=== PATIENT | male | born 1960 | race Caucasian/White ===

== ENCOUNTER 2025-03-11 02:16 | Day surgery (SDC) | payer MEDICARE, SELFPAY ==
[2025-02-26 08:12] VITALS: BMI 28.0
--- NOTE | 2025-02-26 08:34 | PC.NURSE ---
[facility] has started construction of its new state of the art ER which will open Spring 2026. With this, we anticipate parking may be a challenge for some our surgical patients and families. Parking spaces are limited but are available for all Surgical, obstetrics, and ER patients sharing this lot. If you arrive and find you are having a hard time finding a parking space, please note that we understand the challenges, please drive around the hospital and park near Hospital Entrance 1. When you enter this entrance, you can ask a volunteer to direct or take you back to the surgical waiting area to check in. We appreciate everyone?s understanding of these expected challenges while we build for your future. Report to the Outpatient Waiting Room, entrance under the green pavilion located off [address], at time ___10:00AM____ on date ____03/11/25___. Planned Procedure Time: __12:00PM .? Time changes happen often and if your time is changed the preop area will call you the afternoon before. - You and your visitor will be asked to self-screen and do not enter if you have any COVID symptoms. Please call surgeon if you need to reschedule. - A mask is optional within the hospital at this time. Patients may have clear liquids (water, carbonated beverages, clear teas, apple juice) until 3 hours prior to surgery (9:00AM) with a maximum of 20 ounces. - No food from midnight until time of surgery and no smoking, or chewing tobacco (or any form of nicotine). No chewing gum, candy or mints. Take only the following medications with a SIP of water on the morning of surgery: NONE DO NOT STOP ANY OF YOUR OTHER PRESCRIPTION MEDICATIONS PRIOR TO SURGERY EXCEPT THE FOLLOWING Hold all vitamins and supplements for 3 days per anesthesiologist. Medications to discontinue per physician NONE Date to take last dose Please no make-up, nail cay[place] islander, hairspray, perfume, deodorant, or body powder the day of surgery.? No jewelry (including any body piercings) or valuables the day of surgery, leave them at home.? Please take a shower or bath the night before, or the morning of, surgery with an antibacterial soap.? Wear comfortable, loose fitting clothing.? Children are encouraged to wear pajamas. - Jewelry must be removed prior to entering the operating room.? Rings and piercings that are not removed may be cut off. - The hospital will not accept responsibility for valuables.? - Please leave all valuables, including medications, at home the day of surgery. If you are going home after surgery, a licensed route relief driver must drive you home.? - NO public transportation without another adult if you receive anesthesia. - We recommend that an adult stay with you for 24 hours following discharge. - We also recommend that you do not drive, make important decision, drink alcoholic beverages, or take any drugs that were not prescribed by your health care provider for at least 24 hours after your discharge time. For Pediatric surgeries, we recommend two adults accompany the child home. Follow any additional instructions given to you from your surgeon. Telephone instructions given to ____PATIENT and asked if any additional questions and then verbalized understanding. Patient advised to call surgeon office or pre surgery nurse liaison [phone] if any additional questions.
--- NOTE | 2025-03-09 16:39 | P.SS_ITS ---
Same Day Admit/Disch: HPI History of Present Illness Chief complaint: left inguinal hernia Narrative: Milagro Schmidt is a 64 year old male who has a left groin bulge which he first noticed in late July 2024. Has mild associated tenderness, but no specific pain. Most symptomatic at the end of the day, after he's been active. No change in bowel habits, nausea, vomiting, urinary difficult or abdominal distension. No previous hernias or abdominal surgeries. [facility] Past Medical History Medical History (Updated 03/11/25 @ 14:55 by Mike Quintanilla MD) Overweight Surgical History Surgical History Elbow injury elbow traction spur 1986 Family History Family History Mother Cancer Social History Social History Smoking packs per day: 1 Smoking cigarettes per day: 20.0 Years smoked: 4 Smoking pack-years: 4.00 Smoking status: Never smoker Tobacco type: cigarettes Smoking end date: 09/22/82 Living arrangements: with family Additional living arrangements comments: Spiritual care concerns: No Same Day Admit/Disch: Med Pre-admit Medications Home Medications ?Medication ?Instructions ?Recorded ?Confirmed ?Type ibuprofen 600 mg tablet 600 mg PO Q6H PRN pain #14 t abs 03/11/25 Rx oxycodone-acetaminophen 5 mg-325 0.5 - 1 tablet PO Q4H PRN pain #14 03/11/25 Rx mg tablet (Percocet) tabs Exam Const: General: comfortable, no acute distress, alert and awake HENMT: Head: normocephalic and atraumatic Mouth: Yes Normal oral and palatal mucosa present Eyes: Conjunctivae: conjunctivae normal Pupils: Equal, round and reactive p upils present EOM: EOMs intact bilaterally Neck: Neck: normal visual inspection, no lymphadenopathy and nontender Resp: Effort & Inspection: normal respiratory effort Auscultation: clear to auscultation bilaterally Cardio: Rate: regular rate Rhythm: regular rhythm Heart sounds: no gallops, no murmurs and no rubs GI: Inspection: non-distended GI Palp: Yes Soft to palpation, No Tenderness to palpation present (GI), No Hepatomegaly present and No Splenomegaly present : Male General Exam: Yes hernia (Large left inguinal hernia, does not extend into the scrotum, reducible) Penis: Yes normal penis Scrotum: scrotum normal Testes: Testes normal Skin: Lesions: no lesions Rashes: no rashes Neuro: General: no focal motor deficits and CN's II-XI intact bilaterally Cranial nerves: Yes Equal, round and reactive pupils present, Yes Bilaterally intact EOM present, Yes facial symmetry and Yes Midline tongue present Speech: normal speech Motor exam (neuro): 5/5 motor strength present throughout and Motor abnormalities not present Extrem: General: no clubbing, cyanosis or edema and edema Psych: Affect: normal affect Thought process: Normal thought process presen t Insight: Good insight present (Psych) DS: Summary Time Spent with Patient Time attestation: Total time spent providing and/or coordinating discharge services: DS: Admitting Diagnosis Discharge Date 03/11/2025 Admitting Diagnosis * Symptomatic, reducible, left inguinal hernia-after discussion, plan to proceed with robotic laparoscopic repair with mesh. I discussed this surgery in detail with the patient. I explained the length of the surgery, the use of mesh, the usual length of recovery, and the likelihood that this would be an outpatient procedure. Risks and benefits were discussed. All questions were answered. He understands and wishes to proceed. DS: Discharge Diagnosis Discharge Diagnosis (1) Sliding inguinal hernia: Code(s): K40.90 - Unilateral inguinal hernia, without obstruction or gangrene, not specified as recurrent Status: Chronic Assessment and Plan: Repaired robotically with mesh per Dr. Quintanilla 03/11/2025 Discharge Plan Discharge Patient Disposition: Home Discharge Instructions: 1. May shower the day after surgery over incisions. 2. Call office for: -Wound increasingly painful or bleeding -Vomiting -Fever of greater than 101 degrees 3. Wear scrotal support at all times except when bathing or sleeping for 1 week 4. If no bowel movement for three days, take 1 oz. (30 ml) Milk of Magnesia, if no results, take Fleets enema. 5. No heavy lifting > 15-20 pounds for 2 weeks. 6. No driving for 3 days or while taking narcotic pain medications. 7. Up walking 10-30 minutes three times per day. 8. Resume previous home medications. 9. Follow-up 10-14 days in office for wound check or as previously scheduled. 10. Oral pain medications prescription to be sent home with patient. 11. NUTRITION: Start out by drinking fluids and increase your diet as tolerate d. If you experience nausea, try dry toast, crackers, and 7-UP. If nausea or vomiting persists, contact your surgeon?s office. Patient Language: Slovenian Stand Alone Forms: General Discharge Instructions Follow-up/Referrals: Mike Quintanilla MD [Physician, General Surgery] - Keep Reg. Scheduled Appt. Discharge Medications: New ibuprofen 600 mg tablet 600 mg PO Q6H PRN (Reason: pain) Qty: 14 0RF oxycodone-acetaminophen [Percocet] 5-325 mg tablet 0.5 - 1 tablet PO Q4H PRN (Reason: pain) Qty: 14 0RF
[2025-03-11] VITALS (10 sets, daily range): BP systolic 127–142; BP diastolic 62–76; PULSE 53–66; RESP 12–61; TEMP 36.4–36.7; O2SAT 98–100
[2025-03-11] MEDS: ACETAMINOPHEN 500 MG TABLET 1000 MG PO ×2 (10:00→16:28)
[2025-03-11] MEDS: KETOROLAC 15 MG/ML VIAL (*BKC) IV PUSH (10:05)
[2025-03-11] MEDS: LACTATED RINGERS 1,000 ML 30 ML IV CONT ×2 (10:05→14:22)
--- NOTE | 2025-03-11 10:41 | WPDANESEPPF ---
Anes - Initial Pre Proc Eval Procedure: Operation Date: 03/11/25 11:30 Proposed Procedures p Robotic Repair Left Inguinal Hernia with Mesh - Mike Quintanilla MD Date/Time: 03/11/25 10:41 Surgeon: Mike Quintanilla MD Pre Op Diagnosis: left inguinal hernia Patient Data Age: 64 Gender: M Height: 1.75 m Weight: 88.8 kg Last Vital Signs Temp 36.4 C 03/11/25 09:25 Pulse 56 L 03/11/25 09:25 Resp 16 03/11/25 09:25 BP 135/74 03/11/25 09:25 Pulse Ox 100 03/11/25 09:25 O2 Del Method Room Air 03/11/25 09:25 Allergies Allergy/AdvReac Type Severity Reaction Status Date / Time No Known Allergies Allergy Verified 03/11/25 10:36 Home Medications ?Medication ?Instructions ?Recorded ?Confirmed ?Type No Home Medications 12/24/24 12 History Laboratory Tests 03/11/25 10:26 Blood Type Pending Antibody Screen Pending Patient hx anesthesia problems: none Family hx anesthesia problems: none Results Review: All pre-operative results and documents have been reviewed as part of the pre-operative evaluation. [facility] Past Medical History Medical History (Updated 03/11/25 @ 10:41 by Tavares Helms MD) Overweight Surgical History Surgical History Elbow injury elbow traction spur 1986 Family History Family History Mother Cancer Social History Social History Smoking status: Never smoker Tobacco type: cigarettes Anes - Eval Final PreProcedure Day of Procedure 03/11/25 10:41 Patient weight: overweight Heart: regular rate and rhythm Lungs: clear to auscultation Airway: Mallampati scale class II Neurological: alert and oriented Last oral intake: >/= 8 hours ASA classification: II Emergent: no Anesthetic plan: proceed Anesthesia type and monitoring: general ETT and standard monitoring Results Review: All pre-operative results and documents have been reviewed as part of the pre-operative evaluation. Informed Consent: The patient's anesthetic plan and its attendant risks and benefits were discussed with the patient/family/POA. Questions were solicited and answers provided to the satisfaction of the patient/family/POA.
[2025-03-11 10:51] LABS: Hematocrit 35.4 % (42.0-52.0); Hemoglobin 12.6 g/dL (14.0-18.0); Mean Corpuscular HGB Conc 35.6 g/dl (32-36); Mean Corpuscular Hemoglobin 31.7 pg (26-34); Mean Corpuscular Volume 88.9 fl (80-100); Platelet Count Result 158 k/mm3 (150-375); Red Blood Count 3.98 M/mm3 (4.6-6.20); White Blood Count 3.9 K/mm3 (4.5-10.0)
[2025-03-11 11:04] LABS: INR 1.1; Prothrombin Time 14.4 Seconds (11.1-14.7)
[2025-03-11 11:05] LABS: Partial Thromboplastin Time 28.4 Seconds (22.3-36.8)
[2025-03-11 11:10] LABS: Anion Gap 5 mmol/L (4-12); Blood Urea Nitrogen 12 mg/dL (9-20); Calcium 9.2 mg/dL (8.4-10.2); Carbon Dioxide 27 mmol/L (22-30); Chloride 105 mmol/L (98-107); Estimated CRCL calculation 82 ml/min; Estimated Glomerular Filt Rate > 60; Glucose 137 mg/dL (65-110); Potassium 4.4 mmol/L (3.4-5.0); Sodium 137 mmol/L (137-145)
--- NOTE | 2025-03-11 11:31 | WPDHPUPDATE1 ---
History and Physical Update Update Date/Time: 03/11/25 11:31 History and Physical has been reviewed, including an updated exam of the patient. There are NO changes in the patient's condition. Risks, benefits, and alternatives have been discussed and questions answered. Patient agrees to proceed with procedure.
[2025-03-11] MEDS: ceFAZolin 2 GM in SODIUM CHLORIDE 0.9% IV 50 ML 100 ML IVPB (12:00)
[2025-03-11] MEDS: BUPIVACAINE/EPINEPHRINE 0.5% 30 ML VIAL INFILTRATE (12:42)
--- NOTE | 2025-03-11 14:36 | W.PM.PROC2 ---
Procedure Note - Detailed Date of Procedure 03/11/25 Pre-op Diagnosis left inguinal hernia Post-op Diagnosis Other (Sliding left inguinal hernia) Procedure Performed Robotic laparoscopic repair sliding left inguinal hernia with mesh Surgeon Mike Quintanilla MD Log Handler Aman Garcia CAREER COORDINATOR Anesthesia General and Local Indications Left groin bulge that was painful, uncomfortable particularly after significant activity Findings Sliding hernia, sigmoid colon made up the posterior row medial wall of the hernia sac Description of Procedure Patient was taken to surgery and induced into general anesthesia. The abdomen is prepped and draped. Trocars were placed in the usual fashion using a 5 mm applied Medical optical trocar initially and then converting all 3 trocar sites to 8 mm robotic trocars under direct vision. Patient was placed in steep Trendelenburg. Robotic arms were brought into the field. The camera was docked and targeted. The operating arms were then docked and instruments positioned appropriately. The surgeon then went to the robotic console. The sigmoid colon was noted to be in the hernia defect and would not reduce. It was forming the posterior row medial wall of the hernia sac. An anterior peritoneal flap was developed just above the inguinal canal structures. This flap was developed broadly dissecting from anterior to posterior. Medially I dissected very close to and on the posterior aspect of the left rectus abdominis muscle. I followed this down to Getachew's ligament. I then gently dissected in this area and expose the pubis. I also dissected urinary bladder away from the posterior margin of the pubis and Getachew's ligament. I dissected some fatty tissue off the anterior abdominal wall and the medial portion of the right rectus muscle. I then went back to the peritoneal flap. I dissected it laterally and then gently began dissecting and reducing the hernia. With gentle traction, I divided the transversalis muscle overlying the anterior aspect of the hernia sac. This allowed slow, gentle reduction of the hernia. Care was taken to carefully avoided cautery on or near the sigmoid colon. As I further dissected the hernia sac from the indirect ring, I was able to elevate the sac anterolaterally and then carefully dissect the cord structures from the hernia sac. Care was taken to maintain meticulous hemostasis throughout. Eventually I completely reduced the hernia sac including the sigmoid colon. I continued this dissection until the sac and peritoneum were dissected away from the internal ring at least 5 or even 6 cm posterior. I then went back to the medial dissection, the area of Getachew's ligament. I continued the dissection of this more laterally until I was able to see the field radio operator plug. Space for the lower margin of the mesh posterior to Getachew's ligament was created. Further dissection of the peritoneum away from the hernia defect was then carried out. An extra-large, 17 x 12 cm, left mid 3D max mesh was introduced into the abdominal cavity. This was positioned appropriately over the hernia defect and Getachew's ligament. I used 3-0 Vicryl and sutured the mesh to Getachew's ligament and then used the 3-0 Vicryl to secure the mesh medially and laterally on the anterior aspect. This required 2 more stitches. Mesh was in very good position. I used 3-0 V lock and closed the peritoneal defect in running fashion. Some additional 3-0 Vicryl was then used to close a hole in the peritoneum. All looked good. We then removed all the residual suture and the needles. We removed the instruments and undocked the robot. CO2 was evacuated from the abdominal cavity. The trocars were then removed. Skin wounds were closed with subcuticular 4-0 Monocryl skin suture. The wounds were dressed with Exofin surgical adhesive. A scrotal support was placed. The patient was then awakened and extubated. Sponge and needle counts were correct x2. He was then transferred to recovery in good condition. Implants Extra-large, 17 x 12 cm, left mid 3DMax mesh Estimated Blood Loss -5 Drains No Packing No Pathology None sent Complications None Condition Stable Disposition PACU [facility] Billing Surgery - Charge Forward: Surgery Billing (Robotic laparoscopic repair sliding left inguinal hernia)
== END 2025-03-11 17:15 | disposition home or self-care (01) ==
PROVIDERS: Anesthesiology; PCP Internal Medicine; Visit Provider Surgery
PROC: 8E0Y4CZ Robotic Assisted Procedure of Lower Extremity, Percutaneous Endoscopic Approach (ICD-10-PCS; CPT 49650; principal; 2025-03-11 11:30)
DX: K40.90 Unilateral inguinal hernia, without obstruction or gangrene, not specified as recurrent (principal); G89.18 Other acute postprocedural pain; Z79.1 Long term (current) use of non-steroidal anti-inflammatories (NSAID); Z79.891 Long term (current) use of opiate analgesic; Z98.890 Other specified postprocedural states; Z80.9 Family history of malignant neoplasm, unspecified
CPT/HCPCS: 49650; S2900; 36415; 80048; 85027; 85610; 85730; 86850; 86900; 86901; J0690; A9270; C1781; J1100; J1171; J1885; J2003; J2250; J2405; J2704; J3010; J7120